=== PATIENT | male | born 1950 | race Caucasian/White ===

== ENCOUNTER → 2016-09-20 | Outpatient (CLI) | payer MEDICARE, OTHER ==
[~2016-09-20] MED LIST: ALBU8.5H3 INH; ASPI-515 PO; BECL8.7A5 INH; CHOL-29 PO; FLUT50DI INH; GABA600T2 PO; GLIP10TA13 PO; GLIP5TAB10 PO; INSU100C5 SQ-INSULIN; INSU100V14 SC; INSU100V8 SQ; LIRA0.6P SC; LIRA0.6P2 SQ; LISI-170 PO; METF100010 PO; METF10002 PO; METO25TA35 PO; MINO50TA2 PO; MULT-257 PO; OMEG-14 PO; PRED20TA PO; SIMV20TA3 PO; UMEC1DIS INH
== END | disposition home or self-care (01) ==
LOC: CVU 11:17
PROVIDERS: ATTEND Internal Medicine Cardiovascular Disease
DX: I73.9 Peripheral vascular disease, unspecified (principal); E11.9 Type 2 diabetes mellitus without complications; I10 Essential (primary) hypertension; I25.2 Old myocardial infarction
CPT/HCPCS: 93922

== ENCOUNTER 2016-09-23 08:20 | Day surgery (SDC) | payer MEDICARE, OTHER ==
[2016-09-20 11:34] VITALS: BP 128/95
[2016-09-20 12:01] LABS: HEMATOCRIT 48.6 % (39.2-51.8); HEMOGLOBIN 16.4 g/dL (13.7-18.0); WHITE BLOOD COUNT 6.7 x10^3/uL (3.4-10)
[2016-09-20 12:13] LABS: BLOOD UREA NITROGEN 30 mg/dL (7-18)
[~2016-09-23] VITALS: Ht 190.5 cm; Wt 113.6 kg
[~2016-09-23 08:20] MED LIST changes: -METF10002 PO
[2016-09-23] MEDS ORDERED: SODIUM CHLORIDE 0.9% 1,000 ML IV SCH (08:50)
[2016-09-23] MEDS ORDERED: METF10002 PO (09:05)
[2016-09-23 09:21] LABS: BLOOD UREA NITROGEN 29 mg/dL (7-18)
[2016-09-23] MEDS ORDERED: FENTANYL PF 100 MCG/2ML ONE (10:40)
[2016-09-23] MEDS ORDERED: LIDOCAINE 2%, 20ML ONE (10:41)
[2016-09-23] MEDS ORDERED: VERAPAMIL 2.5 MG/ML, 2ML ONE (10:41)
[2016-09-23] MEDS ORDERED: HEPARIN 1,000 UNITS/ML, 10ML ONE (10:41)
[2016-09-23] MEDS ORDERED: MIDAZOLAM 1 MG/ML, 5ML ONE (10:41)
[2016-09-23] MEDS ORDERED: NITROGLYCERIN 5 MG/ML, 10ML ONE (11:18)
== END 2016-09-23 14:13 ==
LOC: CACL 08:20
PROVIDERS: ATTEND Internal Medicine Cardiovascular Disease
DX: R94.39 Abnormal result of other cardiovascular function study (principal); R06.02 Shortness of breath; I10 Essential (primary) hypertension; E78.2 Mixed hyperlipidemia; E11.9 Type 2 diabetes mellitus without complications; J45.909 Unspecified asthma, uncomplicated; Z79.4 Long term (current) use of insulin; Z87.891 Personal history of nicotine dependence; Z79.899 Other long term (current) drug therapy; Z79.82 Long term (current) use of aspirin
CPT/HCPCS: 36415; 80048; 85025; 85610; 85730; 93460; 99156; 99157; C1769; C1894; J1644; J2250; J3010; J3490; Q9967

== ENCOUNTER → 2017-04-01 | Outpatient (CLI) | payer MEDICARE, OTHER ==
[~2017-04-01] MED LIST changes: +ACET-1600 PO; -ALBU8.5H3 INH; +ALBU8.5H8 INH; +ASPI-496 PO; -BECL8.7A5 INH; +BECL8.7A7 INH; +CANA1TAB2 PO; +CYAN1TAB29 PO; +GEMF600T3 PO; +IBUP200C8 PO; +INSU100V13 SC; +METF10002 PO; +NAPR220C2 PO; +OMEP-110 PO
== END | disposition home or self-care (01) ==
LOC: STAR 08:33
PROVIDERS: ATTEND Surgery
DX: Z01.818 Encounter for other preprocedural examination (principal); E11.9 Type 2 diabetes mellitus without complications; J45.909 Unspecified asthma, uncomplicated; M51.34 Other intervertebral disc degeneration, thoracic region
CPT/HCPCS: 71046; 93005

== ENCOUNTER 2017-04-16 06:40 | Day surgery (SDC) | payer MEDICARE, OTHER ==
[~2017-04-16] VITALS: Ht 190.5 cm; Wt 104.7 kg
[2017-04-16] MEDS ORDERED: GABAPENTIN 300 MG CAPSULE PO ONE (07:15)
[2017-04-16] MEDS ORDERED: SCOPOLAMINE PATCH, 1.5MG PATCH.TD72 TD ONE (07:15)
[2017-04-16] MEDS ORDERED: LACTATED RINGERS 1,000 ML IV SCH (07:22)
[2017-04-16 07:27] VITALS: BP 124/84
[2017-04-16] MEDS ORDERED: ACETAMINOPHEN 500 MG TABLET PO ONE (07:30)
[2017-04-16] MEDS ORDERED: MIDAZOLAM 1 MG/ML, 2ML ONE (09:41)
[2017-04-16] MEDS ORDERED: PROPOFOL 10 MG/ML, 20ML ONE (09:42)
[2017-04-16] MEDS ORDERED: ROCURONIUM 10 MG/ML,10ML ONE (09:42)
[2017-04-16] MEDS ORDERED: ONDANSETRON 2MG/ML, 2ML ONE (09:42)
[2017-04-16] MEDS ORDERED: CEFAZOLIN 1,000 MG ONE (09:42)
[2017-04-16] MEDS ORDERED: NEOSTIGMINE 1 MG/ML, 10ML ONE (09:42)
[2017-04-16] MEDS ORDERED: FENTANYL PF 250 MCG/5ML ONE (09:42)
[2017-04-16] MEDS ORDERED: SUCCINYLCHOLINE 20 MG/ML, 10ML ONE (09:42)
[2017-04-16] MEDS ORDERED: GLYCOPYRROLATE 0.2MG/1ML, 5ML ONE (09:42)
[2017-04-16] MEDS ORDERED: DEXAMETHASONE 4 MG/ML, 1ML ONE (09:42)
[2017-04-16] MEDS ORDERED: BUPIVACAINE/PF 0.5% ONE (10:49)
[2017-04-16] MEDS ORDERED: PROMETHAZINE 12.5 MG SUPP PR PRN (12:00)
[2017-04-16] MEDS ORDERED: DIAZEPAM 5 MG/ML, 2ML IVPush PRN (12:00)
[2017-04-16] MEDS ORDERED: ACETAMINOPHEN 325 MG TABLET PO PRN (12:00)
[2017-04-16] MEDS ORDERED: hydrALAzine 20 MG/ML, 1ML IV PRN (12:00)
[2017-04-16] MEDS ORDERED: HYDROmorphone 1 MG/ML, 1ML IV PRN (12:00)
[2017-04-16] MEDS ORDERED: FENTANYL PF 100 MCG/2ML IV PRN (12:00)
[2017-04-16] MEDS ORDERED: OXYcodone 5 MG/5 ML ORAL.SOL UDC PO PRN (12:00)
[2017-04-16] MEDS ORDERED: ONDANSETRON 2MG/ML, 2ML IVPush PRN (12:00)
[2017-04-16] MEDS ORDERED: MIDAZOLAM 1 MG/ML, 2ML IV PRN (12:00)
[2017-04-16] MEDS ORDERED: ALBUTEROL/IPRATROPIUM 2.5MG/0.5MG, 3 ML NPPB PRN (12:00)
[2017-04-16] MEDS ORDERED: PROMETHAZINE 25 MG/ML, 1ML IV PRN (12:00)
[2017-04-16] MEDS ORDERED: MEPERIDINE/PF 25MG/0.5ML IVPush PRN (12:00)
[2017-04-16] MEDS ORDERED: LABETALOL 5MG/ML, 20ML IV PRN (12:00)
[2017-04-16] MEDS ORDERED: ACETAMINOPHEN 500 MG TABLET ONE (15:05)
[2017-04-16] MEDS ORDERED: PHENYLEPHRINE 10 MG/ML ONE (15:37)
[2017-04-16] MEDS ORDERED: KETOROLAC 30 MG/1 ML ONE (15:37)
[2017-04-16] MEDS ORDERED: METOCLOPRAMIDE 5 MG/ML, 2ML ONE (15:37)
== END 2017-04-16 16:15 | disposition home or self-care (01) ==
LOC: OUT 06:40
PROVIDERS: ATTEND Surgery
DX: K40.90 Unilateral inguinal hernia, without obstruction or gangrene, not specified as recurrent (principal); K66.0 Peritoneal adhesions (postprocedural) (postinfection); J45.909 Unspecified asthma, uncomplicated; E11.9 Type 2 diabetes mellitus without complications; E78.00 Pure hypercholesterolemia, unspecified; E78.5 Hyperlipidemia, unspecified; I10 Essential (primary) hypertension; G62.9 Polyneuropathy, unspecified; I25.2 Old myocardial infarction; G47.33 Obstructive sleep apnea (adult) (pediatric); Z98.890 Other specified postprocedural states; Z98.52 Vasectomy status; Z87.891 Personal history of nicotine dependence
CPT/HCPCS: 49650; 82962; C1781; J0330; J0690; J1100; J1885; J2250; J2370; J2405; J2704; J2710; J2765; J3010; J3490; J7120

== ENCOUNTER 2018-06-22 12:00 | Outpatient (CLI) | payer MEDICARE, OTHER ==
[~2018-06-22 12:00] MED LIST changes: -GABA600T2 PO; +GABA600T7 PO; -GEMF600T3 PO; +GEMF600T8 PO
[2018-06-22] MEDS ORDERED: FENTANYL PF 100 MCG/2ML ONE (12:52)
[2018-06-22] MEDS ORDERED: MIDAZOLAM 1 MG/ML, 5ML ONE (12:52)
[2018-06-22] MEDS ORDERED: FLUMAZENIL 0.1 MG/1 ML, 5ML ONE (12:53)
[2018-06-22] MEDS ORDERED: NALOXONE 1 MG/ML, 2ML ONE (12:53)
== END 2018-06-22 23:59 | disposition home or self-care (01) ==
LOC: RAD 12:00
PROVIDERS: ATTEND Registered Nurse
DX: M51.17 Intervertebral disc disorders with radiculopathy, lumbosacral region (principal); M41.86 Other forms of scoliosis, lumbar region; M48.07 Spinal stenosis, lumbosacral region; M48.02 Spinal stenosis, cervical region
CPT/HCPCS: 72110; 72141; 72148; 99156; 99157; J2250; J3010; J2310